=== PATIENT | female | born 1995 | race Native Hawaiian/Other Pacific Islander ===

== ENCOUNTER 2017-12-08 12:01 | Emergency (ER) | payer BC, OTHER ==
[2017-12-08 12:28] VITALS: RESP 16
--- NOTE | 2017-12-08 14:18 | ED PDOC ---
Lower Extremity Pain/Injury Time Seen by Provider: 12/08/17 12:31 Chief Complaint (Nursing): Lower Extremity Problem/Injury Chief Complaint (Provider): Lower Extremity Injury History Per: Patient History/Exam Limitations: no limitations Onset/Duration Of Symptoms: Mins Current Symptoms Are (Timing): Still Present Additional Complaint(s): 22 y/o female presents to the ED with an injury to the right big toe. Patient reports that the leg of a portable bed gave out, causing the bed to fall onto her right big toe. She complains of localized pain and bruising. Pain worsens with ambulating and direct pressure. Patient denies taking medication prior to arrival. LMP is now. No other complaints at present. PMD: none - Ankle/Foot Description Of Injury: Struck With Object Past Medical History Reviewed: Historical Data, Nursing Documentation, Vital Signs Vital Signs: Last Vital Signs Temp 99.5 F 12/08/17 12:26 Pulse 73 12/08/17 12:26 Resp 16 12/08/17 12:26 BP 116/80 12/08/17 12:26 Pulse Ox 99 12/08/17 12:26 - Medical History PMH: No Chronic Diseases - Surgical History Surgical History: No Surg Hx - Family History Family History: States: No Known Family Hx - Social History Current smoker - smoking cessation education provided: No Ex-Smoker (has not smoked in the last 12 months): No Alcohol: None Drugs: Denies - Home Medications Home Medications: Ambulatory Orders Medication Instructions Recorded Naproxen 500 mg PO BID PRN #20 tab 12/08/17 - Allergies Allergies/Adverse Reactions: Allergies Allergy/AdvReac Type Severity Reaction Status Date / Time No Known Allergies Allergy Verified 12/08/17 12:26 Review of Systems ROS Statement: Except As Marked, All Systems Reviewed And Found Negative Musculoskeletal: Positive for: Other (right big toe injury, pain and bruising) Physical Exam - Reviewed Nursing Documentation Reviewed: Yes Vital Signs Reviewed: Yes - Physical Exam Comments: GENERAL APPEARANCE: Patient is awake, alert, oriented x 3, in no acute distress. Ambulatory in ED with a steady, unassisted gait. SKIN: Warm, dry; (-) cyanosis. NECK: Supple, FROM ENT: Mucus membranes moist. Right Foot: (+) mild swelling and erythema/ecchymosis to the dorsum of the right first metatarsal joint; Full ROM of all toes, sensation and cap refill intact, (-) subungual hematoma, (-) skin break (-) warmth. Remainder of extremity nontender with FROM. CARDIOVASCULAR: Normal rate and rhythm. (-) murmur, (-) gallop. CHEST: (-) rales, (-) wheezing, (-) dyspnea, (-) stridor. Breath sounds equal bilaterally. NEUROLOGIC: (+) distal sensation (+) 2+ pulses to b/l lower extremities - Laboratory Results Urine POC: Negative - ECG O2 Sat by Pulse Oximetry: 99 (RA) Pulse Ox Interpretation: Normal Medical Decision Making Medical Decision Making: Time: 13:30 Impression: Toe contusion Plan: * test * Right foot x-ray * Patient declined pain medication in ED * Re-evaluation 1510 XR reviewed, radiology report follows PROCEDURE: Right Foot Radiographs. HISTORY: trauma COMPARISON: None. FINDINGS: BONES: No acute fracture. JOINTS: Unremarkable. SOFT TISSUES: Normal. OTHER FINDINGS: None. IMPRESSION: No demonstrated fracture or dislocation. 1515 On re-evaluation, patient offers no additional complaints. On exam, patient remains AAOx3, in no acute distress. On exam, neck is supple, lungs CTA, cardiac RRR, neuro exam shows no focal findings. VSS, stable for discharge. Diagnostic results d/w the patient in great detail. Dx of toe contusion d/w the patient. Based on history, exam and diagnostic results plan will be for dicharge and outpatient follow up. Advised to follow up with primary care physician/clinic in 1-2 days without fail. Advised to take medication as prescribed. Return to the emergency room at any time for any new or worsening symptoms. Patient states she fully agrees with and understands discharge instructions. States that she agrees with the plan and disposition. Verbalized and repeated discharge instructions and plan. I have given the patient opportunity to ask any additional questions. Scribe Attestation: Documented by Stacey Calderón acting as a scribe Vira Kam PA-C. MD Dugan Attestation: All medical record entries made by the Scribe were at my direction and personally dictated by me. I have reviewed the chart and agree that the record accurately reflects my personal performance of the history, physical exam, medical decision making, and the department course for this patient. I have also personally directed, reviewed, and agree with the discharge instructions and disposition. Disposition - Clinical Impression Clinical Impression: Toe contusion - Patient ED Disposition Is Patient to be Admitted: No Counseled Patient/Family Regarding: Studies Performed, Diagnosis, Need For Followup, Rx Given - Disposition Referrals: Podiatry Clinic [Outside] [facility] [Outside] Disposition: Routine/Home Disposition Time: 15:17 Condition: STABLE Additional Instructions: FOLLOW UP WITH CLINIC IN 1-2 DAYS FOR FURTHER EVALUATION IF NEEDED. RETURN TO ED WITH ANY NEW OR WORSENING SYMPTOMS. Prescriptions: Naproxen 500 mg PO BID PRN #20 tab PRN Reason: Pain, Moderate (4-7) Instructions: Contusion (DC), Toe Injury Forms: [facility] (Gambian) Print Language: FRISIAN - POA Present On Arrival: Falls Or Trauma
--- NOTE | 2017-12-08 14:50 | RAD ---
PROCEDURE: Right Foot Radiographs. HISTORY: trauma COMPARISON: None. FINDINGS: BONES: No acute fracture. JOINTS: Unremarkable. SOFT TISSUES: Normal. OTHER FINDINGS: None. IMPRESSION: No demonstrated fracture or dislocation.
[2017-12-08 15:34] VITALS: BP 125/77; PULSE 75; TEMP 98
[2017-12-11 18:12] VITALS: O2SAT 99
== END 2017-12-08 15:34 | disposition home or self-care (01) ==
LOC: H.ER 12:01
DX: S90.31XA Contusion of right foot, initial encounter (principal); Z87.891 Personal history of nicotine dependence